=== PATIENT | female | born 2000 | race Caucasian/White ===

== ENCOUNTER 2019-02-08 13:04 | Emergency (ER) | payer BC ==
[~2019-02-08] VITALS: Ht 177.8 cm; Wt 65.0 kg
[~2019-02-08 13:04] MED LIST: ONDA4TAB12 PO
--- NOTE | 2019-02-08 14:22 | NUR ---
TELE-NEURO INITIATED
[2019-02-08 14:44] LABS: BASOPHILS # (AUTO) 0.1 X10'3 (0-0.2); BASOPHILS % (AUTO) 0.8 % (0-1); EOSINOPHILS # (AUTO) 0.1 X10'3 (0-0.9); HEMATOCRIT 41.1 % (35.0-45.0); HEMOGLOBIN 14.4 g/dl (12.0-16.0); LYMPHOCYTES # (AUTO) 1.9 X10'3 (1.1-4.8); LYMPHOCYTES % (AUTO) 26.8 % (21-51); MEAN CORPUSCULAR HEMOGLOBIN 31.4 PG (27.0-31.0); MEAN CORPUSCULAR HGB CONC 34.9 g/dL (33.0-36.5); MEAN CORPUSCULAR VOLUME 89.9 FL (78-98); MEAN PLATELET VOLUME 8.4 FL (7.4-10.4); MONOCYTES # (AUTO) 0.6 X10'3 (0-0.9); MONOCYTES % (AUTO) 8.9 % (2-12); NEUTROPHILS # (AUTO) 4.4 X10'3 (1.8-7.7); NEUTROPHILS % (AUTO) 62.5 % (42-75); PLATELET COUNT 282 X10'3 (140-440); RED BLOOD COUNT 4.57 X10'6 (4.20-5.60); RED CELL DISTRIBUTION WIDTH 12.5 % (11.5-14.5)
[2019-02-08 14:59] LABS: ALANINE AMINOTRANSFERASE 22 U/L (12-78); ALBUMIN/GLOBULIN RATIO 1.5 (1.1-1.5); ALKALINE PHOSPHATASE 63 IU/L (20-180); ANION GAP 9 (8-16); ASPARTATE AMINO TRANSFERASE 16 U/L (10-37); BILIRUBIN,TOTAL 0.5 MG/DL (0.1-1.0); BLOOD UREA NITROGEN 13 MG/DL (7-18); CALCIUM 10.2 MG/DL (8.5-10.1); CHLORIDE 105 MMOL/L (99-107); CREATININE 0.81 MG/DL (0.40-0.90); GLUCOSE 83 MG/DL (70-104); POTASSIUM 3.4 MMOL/L (3.5-5.1); SODIUM 141 MMOL/L (135-145); TOTAL CARBON DIOXIDE 26.6 MMOL/L (24-32); TOTAL PROTEIN 8.4 G/DL (6.4-8.2); eGFR > 90 ML/MIN
[2019-02-08 15:17] LABS: CLARITY,URINE CLOUDY (Clear); COLOR,URINE YELLOW (Yellow); GLUCOSE, URINE NEGATIVE (Neg); KETONES,URINE TRACE mg/dl (Neg); LEUKOCYTE ESTERASE ,URINE TRACE (Neg); NITRITES, URINE NEGATIVE (Neg); OCCULT BLOOD,URINE TRACE-INTACT (Neg); PROTEIN,URINE NEGATIVE (Neg); UA COLLECTION TYPE CLN CATCH MIDSTREAM; UROBILINOGEN,URINE 0.2 E.U/dL (0.2-1.0)
[2019-02-08 15:21] LABS: URINE HCG NEGATIVE (NEG)
[2019-02-08 15:24] LABS: URINE AMPHETAMINE SCREEN NEGATIVE (Neg); URINE BARBITUATE SCREEN NEGATIVE (Neg); URINE BENZODIAZEPINES SCREEN NEGATIVE (Neg); URINE CANNABINOID SCREEN POSITIVE (Neg); URINE COCAINE SCREEN NEGATIVE (Neg); URINE METHADONE SCREEN NEGATIVE (Neg); URINE OPIATE SCREEN NEGATIVE (Neg); URINE PHENCYCLIDINE SCREEN NEGATIVE (Neg)
[2019-02-08 15:30] LABS: MUCUS STRANDS MANY /LPF (Neg); SQUAMOUS EPITHELIAL CELL,UR MANY /LPF (FEW)
[2019-02-08 15:31] LABS: BACTERIA,URINE 2+ /HPF (Neg); WBC,URINE 0-4 /HPF (0-4)
--- NOTE | 2019-02-08 15:40 | NUR ---
Patient informed another urine sample is needed per lab request. Patient unable to void enough at this time, patient to MRI via wheelchair, no signs of distress noted, parents at bedside aware.
[2019-02-08 17:48] VITALS: BP 119/78
== END 2019-02-08 17:49 | disposition home or self-care (01) ==
LOC: ER 13:05
DX: R55 Syncope and collapse (principal); R51 Headache; R42 Dizziness and giddiness; R41.0 Disorientation, unspecified; R56.9 Unspecified convulsions; Z79.899 Other long term (current) drug therapy
CPT/HCPCS: 36415; 70551; 80053; 80305; 81001; 81025; 85025; 93005; 99284

== ENCOUNTER 2021-06-09 13:56 | Emergency (ER) | payer BC ==
[~2021-06-09] VITALS: Ht 167.6 cm; Wt 71.8 kg
[2021-06-09 15:03] LABS: URINE HCG NEGATIVE (NEG)
[2021-06-09 15:06] LABS: CLARITY,URINE CLEAR (Clear); COLOR,URINE STRAW (Yellow); GLUCOSE, URINE NEGATIVE (Neg); KETONES,URINE NEGATIVE (Neg); LEUKOCYTE ESTERASE ,URINE NEGATIVE (Neg); NITRITES, URINE NEGATIVE (Neg); OCCULT BLOOD,URINE NEGATIVE (Neg); PH,URINE 7.5 (4.8-8.0); PROTEIN,URINE NEGATIVE (Neg); UROBILINOGEN,URINE 0.2 E.U/dL (0.2-1.0)
[2021-06-09 15:07] LABS: BASOPHILS % (AUTO) 0.4 % (0-1); EOSINOPHILS # (AUTO) 0.1 X10'3 (0-0.9); EOSINOPHILS % (AUTO) 0.8 % (0-6); HEMATOCRIT 41.2 % (35.0-45.0); HEMOGLOBIN 13.5 g/dl (12.0-16.0); LYMPHOCYTES # (AUTO) 1.8 X10'3 (1.1-4.8); LYMPHOCYTES % (AUTO) 18.9 % (21-51); MEAN CORPUSCULAR HEMOGLOBIN 27.7 PG (27.0-31.0); MEAN CORPUSCULAR HGB CONC 32.7 g/dL (33.0-36.5); MEAN CORPUSCULAR VOLUME 84.8 FL (78-98); MEAN PLATELET VOLUME 8.1 FL (7.4-10.4); MONOCYTES # (AUTO) 0.6 X10'3 (0-0.9); MONOCYTES % (AUTO) 6.7 % (2-12); NEUTROPHILS # (AUTO) 6.9 X10'3 (1.8-7.7); NEUTROPHILS % (AUTO) 73.2 % (42-75); PLATELET COUNT 314 X10'3 (140-440); RED BLOOD COUNT 4.86 X10'6 (4.20-5.60); WHITE BLOOD COUNT 9.4 X10'3 (4.5-11.0)
[2021-06-09 15:08] LABS: URINE AMPHETAMINE SCREEN NEGATIVE (Neg); URINE BARBITUATE SCREEN NEGATIVE (Neg); URINE BENZODIAZEPINES SCREEN NEGATIVE (Neg); URINE CANNABINOID SCREEN POSITIVE (Neg); URINE COCAINE SCREEN NEGATIVE (Neg); URINE METHADONE SCREEN NEGATIVE (Neg); URINE OPIATE SCREEN NEGATIVE (Neg); URINE PHENCYCLIDINE SCREEN NEGATIVE (Neg)
--- NOTE | 2021-06-09 15:15 | NUR ---
first time interaction with the pt ,pt stated that she has tried to overdose herself with scheduled prescribed meds ,pt said she does not take ativian but today she has taken 1 tab 50 mg ativian po onces in the morning around 0930 .pt d Addendum: 06/09/21 at 1619 by MADI pt said she has attempted sucide in the past x 5 times 3 times overdose 1 cutting and onces hanging herself.pt said she is struggling since high school,pt has hx oaf anorexia bipolar ,bryant ,depression .,pt has a hx of cutting herself ,stopped for a while now started cutting again since the boyfriend left the house.pt placed on 5150 hold and waiting for placement .
[2021-06-09 15:19] LABS: ALANINE AMINOTRANSFERASE 24 U/L (12-78); ALBUMIN 4.6 G/DL (3.4-5.0); ALBUMIN/GLOBULIN RATIO 1.4 (1.1-1.5); ALKALINE PHOSPHATASE 68 IU/L (46-116); ANION GAP 9 (8-16); ASPARTATE AMINO TRANSFERASE 17 U/L (10-37); BILIRUBIN,TOTAL 0.4 MG/DL (0.1-1.0); BLOOD UREA NITROGEN 9 MG/DL (7-18); BUN/CREATININE RATIO 10.2 (6.6-38.0); CHLORIDE 106 MMOL/L (99-107); CREATININE 0.88 MG/DL (0.40-0.90); GLUCOSE 96 MG/DL (70-104); POTASSIUM 3.7 MMOL/L (3.5-5.1); SODIUM 144 MMOL/L (135-145); TOTAL CARBON DIOXIDE 29.1 MMOL/L (24-32); TOTAL PROTEIN 7.9 G/DL (6.4-8.2); eGFR 81 ML/MIN
[2021-06-09 15:20] LABS: UA COLLECTION TYPE CLN CATCH MIDSTREAM
--- NOTE | 2021-06-09 15:26 | NUR ---
notified robbie call that pt stated that she has taken 50 mg1 tab of ativian this am around 0930 along with her precribed gabapentin 1200 mg ,clarified with the pt was it 0.5 mg tab of ativian,15 mg of 50 mg ,pt said 50 mg ativian i have taken 1 tab,notified robbie call and said it does not make any sense.as per md am not worried about it ,its not rgt.no action needed.
[2021-06-09 15:28] LABS: ETHANOL < 0.010 GM/DL (0.0-0.010)
--- NOTE | 2021-06-09 17:15 | NUR ---
pt resting in bed quietly ,no distress noted ,will cont to monitor.
[2021-06-09 18:02] VITALS: BP 100/63
[2021-06-09] MEDS ORDERED: HYDR50CA5 PO (18:19)
[2021-06-09] MEDS ORDERED: QUET300T20 PO (18:19)
[2021-06-09] MEDS ORDERED: VORT10TA PO (18:19)
[2021-06-09] MEDS ORDERED: GABA-534 PO (18:19)
[2021-06-09] MEDS ORDERED: MELA10TA2 PO (18:19)
[2021-06-09] MEDS ORDERED: TRAZ-256 PO (18:19)
--- NOTE | 2021-06-09 18:56 | NUR ---
PT UP TO NURSES STATION TO REQUEST A PHONE TO CALL HER BOYFRIEND. SHE IS CALM AND APPROPRIATE. NOW TALKING QUITELY ON THE PHONE AND IS CRYING.
--- NOTE | 2021-06-09 20:08 | NUR ---
pt eloped from the unit and ran from the hospital in her green scrubs. pt was upset because we did not give her the phone even though it was being used by another patient. she started cursing and flipping off staff. we told her that we would not give her the phone until she calmed down and the other patient was done using the phone. she then left the unit. rpd called to pick her up. security alerted followed pt from the hospital until pt left the premises.
--- NOTE | 2021-06-09 20:51 | NUR ---
pt mother called and we notified her that patient was AWOL from hospital. notified mother that police department notified and are searching for her.
== END 2021-06-09 21:24 | disposition left against medical advice (07) ==
LOC: ER 13:56
DX: R45.851 Suicidal ideations (principal); F41.9 Anxiety disorder, unspecified; R63.0 Anorexia; F31.9 Bipolar disorder, unspecified; F12.90 Cannabis use, unspecified, uncomplicated; Z79.899 Other long term (current) drug therapy
CPT/HCPCS: 36415; 80053; 80305; 80320; 81003; 81025; 84443; 85025; 99285